=== PATIENT | male | born 1945 | race Caucasian/White ===

== ENCOUNTER 2023-10-01 09:13 | Outpatient (CLI) | payer MEDICARE, SELFPAY | END 2023-10-01 09:14 | disposition home or self-care (01) | PROVIDERS: PCP Family Medicine; Visit Provider Family Medicine | DX: E03.9 Hypothyroidism, unspecified (principal); E87.6 Hypokalemia; I10 Essential (primary) hypertension; E78.00 Pure hypercholesterolemia, unspecified; Z13.21 Encounter for screening for nutritional disorder; Z12.5 Encounter for screening for malignant neoplasm of prostate | CPT/HCPCS: 80053; 80061; 82607; 83735; 84443; G0103 ==

== ENCOUNTER 2023-10-10 22:02 | Outpatient (REF) | payer MEDICARE, SELFPAY ==
[2023-10-10 22:23] LABS: Basophils Absolute Auto 0.05 K/uL (0.00-0.30); Basophils Percent Auto 0.6 % (0.0-3.0); Eosinophils Absolute Auto 0.14 K/uL (0.00-0.50); Eosinophils Percent Auto 1.7 % (0.0-7.0); Hematocrit 45.3 % (37.0-53.0); Hemoglobin* 15.7 gm/dL (13.5-17.5); Immature Granulocytes Abs Auto 0.03 K/uL (0.00-0.30); Immature Granulocytes Pct Auto 0.4 %; Lymphocytes Percent Auto 12.7 % (20-44); Mean Corpuscular HGB Conc 35 gm/dL (32-36); Mean Corpuscular Hemoglobin 31 pg (26-34); Mean Corpuscular Volume 88 fL (80-100); Monocytes Percent Auto 6.9 % (0.0-11.0); Neutrophils Percent Auto 77.7 % (42.0-72.0); Platelet Count* 231 K/uL (140-440); RDW Coefficient of Variation % 13.2 % (11.5-15.5); Red Blood Count 5.14 m/uL (4.30-5.90); White Blood Count* 8.21 K/uL (4.50-11.00)
[2023-10-10 22:26] LABS: Albumin* 4.5 g/dL (3.3-5.0)
[2023-10-10 22:29] LABS: Alanine Aminotransferase* 23 U/L (4-50); Alkaline Phosphatase* 57 U/L (40-150); Aspartate Amino Transferase* 40 U/L (12-35); Bilirubin Direct* 0.3 mg/dL (0.0-0.5); Bilirubin Total* 0.9 mg/dL (0.1-1.5); Total Protein* 7.5 g/dL (6.0-8.3)
[2023-10-10 23:10] LABS: Slide Review Reflex No
[2023-10-10 23:18] LABS: Vitamin B12* 403 pg/mL (243-894)
[2023-10-10 23:40] LABS: Iron* 114 ug/dL (49-181)
[2023-10-10 23:50] LABS: Percent Iron Saturation 32 % (20-50); Total Iron Binding Capacity 353 ug/dL (261-462)
[2023-10-10 23:58] LABS: Vitamin D 25 Hydroxy* 38 ng/mL (30-80)
[2023-10-11 00:16] LABS: Ferritin* 61.5 ng/mL (17.9-464.0)
[2023-10-12 18:58] LABS: Folate, Serum 16.3 ng/mL (>=5.9)
== END 2023-10-10 22:03 | disposition home or self-care (01) ==
LOC: NPINS 22:02
PROVIDERS: PCP Family Medicine; Visit Provider Internal Medicine Gastroenterology
DX: K50.80 Crohn's disease of both small and large intestine without complications (principal)
CPT/HCPCS: 80076; 82306; 82607; 82728; 82746; 83540; 83550; 85025

== ENCOUNTER 2024-09-15 08:10 | Outpatient (CLI) | payer MEDICARE, SELFPAY | END 2024-09-15 08:11 | disposition home or self-care (01) | LOC: NFLDREF 09-21 01:49 | PROVIDERS: PCP Family Medicine; Referring Provider Family Medicine; Visit Provider Family Medicine | DX: E03.9 Hypothyroidism, unspecified (principal); E87.6 Hypokalemia; K50.90 Crohn's disease, unspecified, without complications; I10 Essential (primary) hypertension; I48.91 Unspecified atrial fibrillation; R53.83 Other fatigue; Z13.220 Encounter for screening for lipoid disorders; Z13.0 Encounter for screening for diseases of the blood and blood-forming organs and certain disorders involving the immune mechanism | CPT/HCPCS: 80048; 80061; 80076; 82728; 83540; 84443 ==

== ENCOUNTER 2024-09-29 08:48 | Outpatient (CLI) | payer MEDICARE, SELFPAY ==
--- NOTE | 2024-09-29 09:15 | CRLHL7_ITS ---
For Patients: As a result of the Cures Act, medical imaging exams and procedure reports are released immediately into your electronic medical record. You may view this report before your referring provider. If you have questions, please contact your health care provider. Examination: US abdominal aorta Indication: Abdominal aortic aneurysm screening. Technique: Rey scale and color Doppler images of the aorta and common iliac arteries are obtained. Comparison: 10/07/2023 Findings: Proximal aorta: 3.1 x 3.1 cm, previously measuring 3.1 cm. Mid aorta: 2.5 x 2.5 cm Distal aorta: 2.2 x 1.9 cm Right common iliac artery: 1.3 x 1.2 cm Left common iliac artery: 1.2 x 1.3 cm Recommended imaging interval for ectatic aorta: 3.0-3.4 cm: 3 years Impression: Proximal aorta measures 3.1 cm, similar to the prior study. Dictated by Conner Riggins MD @ 09/29/2024 10:25:22 AM (Electronically Signed)
== END 2024-09-29 08:49 | disposition home or self-care (01) ==
LOC: US 08:49
PROVIDERS: PCP Family Medicine; Visit Provider Family Medicine
DX: Z13.6 Encounter for screening for cardiovascular disorders (principal)
CPT/HCPCS: 76775

== ENCOUNTER 2024-12-21 08:10 | Outpatient (CLI) | payer MEDICARE, SELFPAY | END 2024-12-21 08:11 | disposition home or self-care (01) | LOC: NFLDREF 12-24 19:20 | PROVIDERS: PCP Family Medicine; Referring Provider Family Medicine; Visit Provider Family Medicine | DX: E03.9 Hypothyroidism, unspecified (principal); I10 Essential (primary) hypertension; R53.83 Other fatigue | CPT/HCPCS: 80048; 84443 ==